=== PATIENT | female | born 1975 | race African-American/Black ===

== ENCOUNTER 2019-05-12 22:02 | Emergency (ER) | payer OTHER ==
[~2019-05-12] VITALS: Ht 170.2 cm; Wt 73.0 kg
[2019-05-12] MEDS ORDERED: HYDROCODONE/ACETAMINOPHEN 5/325MG TABLET PO ONE (23:00)
[2019-05-12] MEDS ORDERED: KETOROLAC 60MG/2ML VIAL IM ONE (23:00)
[2019-05-13 02:52] VITALS: BP 107/71
== END 2019-05-13 03:08 | disposition home or self-care (01) ==
LOC: ER 22:02
DX: S16.1XXA Strain of muscle, fascia and tendon at neck level, initial encounter (principal); M54.5 Low back pain; V49.88XA Car occupant (driver) (passenger) injured in other specified transport accidents, initial encounter; Y93.89 Activity, other specified; Y92.89 Other specified places as the place of occurrence of the external cause; Y99.8 Other external cause status
CPT/HCPCS: 72040; 96372; 99283; J1885